=== PATIENT | male | born 1955 | race Caucasian/White ===

== ENCOUNTER 2019-11-17 17:58 | Emergency (ER) | payer OTHER, SELFPAY ==
--- NOTE | ~2019-11-17 | XR_ITS ---
EXAMINATION: XR abdomen/kub 1V EXAM DATE: 11/17/2019 19:52 INDICATION: Right mid ureteral stone. Right renal mass. TECHNIQUE: Frontal projection(s) of the abdomen for interpretation. There is no prior study for [place]. FINDINGS: Can't identify the 3-4 mm right mid ureteral stone, may project over the upper sacral yancy in. Can't identify the punctate bilateral nephrolithiasis. There is mild to moderate thoracolumbar sc oliosis. Moderate amount of colonic stool and gas. No obstruction. IMPRESSION: 1. Cannot identify right mid ureteral stone. Reviewed, dictated and finalized at location A.
--- NOTE | ~2019-11-17 | XR_ITS ---
EXAMINATION: XR chest 2V EXAM DATE: 11/17/2019 19:52 INDICATION: Renal mass, history of hypertension. TECHNIQUE: Frontal and lateral projections of the chest obtained and reviewed. There is no prior sherrie dy for comparison. FINDINGS: There is mild to moderate upper thoracic levoscoliosis, mid thoracic dextroscoliosis, lumb ar levoscoliosis. There is a 6 mm density projecting over the right midlung zone, possible intraparen chymal nodule. Please note that couple of smaller nodules were identified on the abdomen and pelvis C T obtained earlier same date. No confluent consolidation, pneumothorax or pleural effusion suspected. Cardiomediastinal silhouette is normal. IMPRESSION: Right midlung zone 6 mm indeterminate nodular density. Could be granuloma but consider fo llow-up nonemergent chest CT to exclude pulmonary metastatic disease. Reviewed, dictated and finalized at location A. IMPRESSION: Right midlung zone 6 mm indeterminate nodular density. Could be gra nuloma but consider follow-up nonemergent chest CT to exclude pulmonary metasta tic disease.
--- NOTE | ~2019-11-17 | CT_ITS ---
EXAMINATION: CT abdomen pelvis wo con EXAM DATE: 11/17/2019 18:51 INDICATION: Right flank pain. History of kidney stones. TECHNIQUE: Spiral CT of the abdomen and pelvis was performed without contrast. Axial, coronal and sag ittal images were reviewed. The dose-length product (DLP) for this examination was 763.31 mGy-cm. T he exposure was tailored according to patient size (auto mA exposure control), and iterative reconstr uction (ASIR) was used as additional dose reduction technique. There is no prior study for compariso n. FINDINGS: There is lobular heterogeneous mass at the superior pole of the right kidney measuring 7.6 x 5.8 cm, most likely renal cell cancer. There is a 3-4 mm stone in the mid aspect of the right urete r, at the L5-S1 disc space level, with mild right-sided hydronephrosis, mild to moderate perinephric and periureteral fat stranding. Additional punctate bilateral calyceal stones. The prostate is unre markable. Small right inguinal fat-containing hernia. The bladder is unremarkable. The liver, spleen, adrenal glands and pancreas are unremarkable. Gallbladder is unremarkable. No bi liary obstruction. There is no retroperitoneal or pelvic lymphadenopathy. There is mild scattered arteriosclerotic disease. The appendix is normal. The stomach and small bowel are unremarkable. There is expected amount of c olonic stool. No free intraperitoneal gas. The heart is normal in size. There are no pericardial or pleural effusions. There is mild emphysema. There is a 3 mm pleural-based left lower lobe nodule on image 11, punctate 2 mm right lower lobe nodule on image 9. Most likely granulomas. 1 year follow-up low-dose chest CT ca n be considered. Mild to moderate thoracolumbar scoliosis. IMPRESSION: 1. Large right renal mass most likely RCC. 2. Right mid ureteral 3-4 mm stone, mild hydronephrosis and mild to moderate perinephric fat strandi ng. 3. Two tiny basilar nodules; consider one-year follow-up low-dose chest CT. 4. Small right inguinal fat-containing hernia. 5. Punctate bilateral nephrolithiasis. Reviewed, dictated and finalized at location A. IMPRESSION: 1. Large right renal mass most likely RCC. 2. Right mid ureteral 3-4 mm stone, mild hydronephrosis and mild to moderate p erinephric fat stranding. 3. Two tiny basilar nodules; consider one-year follow-up low-dose chest CT. 4. Small right inguinal fat-containing hernia. 5. Punctate bilateral nephrolithiasis.
[2019-11-17 18:01] VITALS: BP 157/78; PULSE 93; RESP 16; TEMP 36.4; O2SAT 99
--- NOTE | 2019-11-17 18:19 | ED.BACK ---
HPI - Back Pain/Injury General Chief Complaint: Back Pain/Injury Stated Complaint: R flank pain Time Seen by Provider: 11/17/19 18:07 Source: patient Mode of arrival: ambulatory Limitations: no limitations History of Present Illness HPI Narrative: This is a 64 year old male that presents to the ER for right sided flank pain since this afternoon. Reports the pain has been constant. Associated with an episode of nausea and vomiting. Reports history of kidney stones and pain feels similar to that. Denies fever, dysuria, or hematuria. Related Data Home Medications Medication Instructions Recorded Confirmed glimepiride 1 mg tablet 1 mg PO QAM 04/17/19 lisinopril 10 mg tablet 10 mg PO DAILY 04/17/19 metformin 500 mg tablet 500 mg PO DAILY 04/17/19 Allergies Allergy/AdvReac Type Severity Reaction Status Date / Time No Known Allergies Allergy Unknown Verified 02/14/17 08:53 Review of Systems Review of Systems: Narrative: CONSTITUTIONAL: Denies fever GASTROINTESTINAL: Reports nausea and vomiting. Denies abdominal pain, or diarrhea. GENITOURINARY: Denies dysuria or hematuria. MUSCULOSKELETAL: Reports back pain All systems reviewed & are unremarkable except as noted in HPI and below FOR[facility]LY [facility] Past Medical History Medical History (Updated 11/17/19 @ 19:53 by Anna Reardon PA-C) Essential hypertension History of diabetes mellitus JEANNIE (obstructive sleep apnea) Social History Social History Smoking status: Current every day smoker Exam Narrative: Exam Narrative: GENERAL: Well-appearing, obese, and in no acute distress. HEAD: Normocephalic, atraumatic. EYES: EOMI. CHEST: Clear to auscultation. No respiratory distress. No wheezes rales or rhonchi HEART: Regular rate and rhythm. No murmur heard. Normal peripheral pulses. ABDOMEN: Soft, nontender, nondistended, normal active bowel sounds. Right sided CVA tenderness EXTREMITIES: Normal range of motion. No edema. SKIN: Warm, dry, no rash. NEURO: No focal deficits. Alert and oriented x3. PSYCH: Normal mood and affect Course Consultations Consultation #1: Spoke with Dr. Jacobs about patient and workup who would like KUB and chest x-ray added on. Will get message to Dr. Hampton who patient has seen in the past. Patient will be started on Flomax and given pain medication as needed. He is to follow-up in clinic Date: 11/17/19 Time: 19:50 Consultation #2: spoke with patient's primary appraiser irrigation tax, Dr. Thompson about work-up. Date: 11/17/19 Time: 19:53 Vital Signs Vital signs: Vital Signs Temperature 97.5 F L 11/17/19 18:01 Pulse Rate 93 11/17/19 18:01 Respiratory Rate 16 11/17/19 18:01 Blood Pressure 157/78 H 11/17/19 18:01 Pulse Oximetry 99 11/17/19 18:01 Temperature 97.5 F L 11/17/19 18:01 Pulse Rate 93 11/17/19 18:01 Respiratory Rate 16 11/17/19 18:01 Blood Pressure 157/78 H 11/17/19 18:01 Pulse Oximetry 99 11/17/19 18:01 MDM - Back Pain/Injury MDM Narrative Medical decision making narrative: Patient presents the emergency department for right-sided flank pain since this afternoon. He is afebrile and nontoxic-appearing. CBC with mild leukocytosis to 11.5. Metabolic panel is without acute changes. UA with red blood cells, no evidence of infection. CT scan of the abdomen and pelvis shows a right 3 to 4 mm mid ureteral stone with mild right hydronephrosis. Also shows a large right renal mass suspicious for RCC. Also shows small lung nodules which will need follow-up in [address] scan. Spoke with Dr. Jacobs about patient and workup who would like KUB and chest x-ray added on. Will get message to Dr. Hampton who patient has seen in the past. Patient will be started on Flomax and given pain medication as needed. He is to follow-up in clinic. Also spoke with patient's primary appraiser irrigation tax, Dr. Thompson about work-up. Patient is stable and felt appropriate for further outpatient ev
[2019-11-17 18:23] LABS: Basophils Absolute Auto 0.1 K/mm3 (0.0-0.1); Basophils Percent Auto 0.4 % (0.2-1.2); Eosinophils Percent Auto 0.1 % (0-4.4); Hematocrit 47.6 % (42.0-52.0); Hemoglobin 15.2 g/dL (14.0-18.0); Immature Granulocyte Absolute 0.03 K/mm3 (0.00-0.031); Immature Granulocyte Percent A 0.3 % (0-0.5); Lymphocytes Absolute Auto 0.71 K/mm3 (0.9-3.2); Lymphocytes Percent Auto 6.2 % (18.3-44.2); Mean Corpuscular HGB Conc 31.9 g/dl (32-36); Mean Corpuscular Hemoglobin 28.8 pg (26-34); Mean Corpuscular Volume 90.3 fl (80-100); Mean Platelet Volume 11.4 fl (7.4-10.4); Monocytes Absolute Auto 0.4 K/mm3 (0.1-0.6); Monocytes Percent Auto 3.8 % (2.6-8.5); Neutrophils Absolute Auto 10.3 K/mm3 (1.3-6.7); Neutrophils Percent Auto 89.2 % (45.5-73.1); Platelet Count Result 188 k/mm3 (150-375); Red Blood Count 5.27 M/mm3 (4.6-6.20); Red Cell Distribution Width 13.3 % (11.5-14.5); White Blood Count 11.5 K/mm3 (4.5-10.0)
[2019-11-17 18:26] LABS: Add Urine Microscopic? YES; Appearance Urine Clear (Clear); Bilirubin Urine Negative (Negative); Blood Urine 1+ (Negative); Color Urine Yellow (Yellow); Glucose Urine UA Negative (Negative); Ketones Urine Negative (Negative); Leukocyte Esterase Ur Negative LEU/UL (Negative); Mucus Urine Rare /lpf; Nitrate Urine Negative (Negative); Protein Urine Negative (Negative); Specific Grav Ur 1.019 (1.001-1.035); Squamous Epithelial Cell Urine Rare /hpf (Few); Urobilinogen Urine Negative mg/dL (<2.0); WBC Urine 0-3 /hpf
[2019-11-17 18:35] LABS: Alanine Aminotransferase 40 U/L (4-50); Albumin Level 4.6 g/dL (3.5-5.1); Alkaline Phosphatase 87 U/L (38-126); Aspartate Amino Transferase 27 U/L (17-59); Bilirubin,Total 0.3 mg/dL (0.2-1.3); Blood Urea Nitrogen 21 mg/dL (9-20); Calcium 9.2 mg/dL (8.4-10.2); Carbon Dioxide 24 mmol/L (22-30); Chloride 103 mmol/L (98-107); Estimated CRCL calculation 70 ml/min; Estimated Glomerular Filt Rate > 60; Glucose 165 mg/dL (75-110); Potassium 4.5 mmol/L (3.4-5.0); Sodium 138 mmol/L (137-145)
[2019-11-17] MEDS: MORPHINE SULFATE 4 MG/ML INJ IV PUSH (19:06)
[2019-11-17] MEDS: ONDANSETRON INJ 4 MG/2 ML VIAL (19:07)
[2019-11-17] MEDS: KETOROLAC 30 MG/ML VIAL (*BKC) IV PUSH (20:09)
== END 2019-11-17 20:24 | disposition home or self-care (01) ==
PROVIDERS: Physician Assistant; Emergency Provider Emergency Medicine; PCP Family Medicine
DX: N13.2 Hydronephrosis with renal and ureteral calculous obstruction (principal); N28.89 Other specified disorders of kidney and ureter; R91.8 Other nonspecific abnormal finding of lung field; I10 Essential (primary) hypertension; E11.9 Type 2 diabetes mellitus without complications; G47.33 Obstructive sleep apnea (adult) (pediatric); F17.200 Nicotine dependence, unspecified, uncomplicated; K40.90 Unilateral inguinal hernia, without obstruction or gangrene, not specified as recurrent; Z79.84 Long term (current) use of oral hypoglycemic drugs
CPT/HCPCS: 36415; 71046; 74018; 74176; 80053; 81001; 85025; 96365; 96375; 99284; J0131; J1885; J2270; J2405

== ENCOUNTER 2019-11-28 09:40 | Outpatient (CLI) | payer OTHER, SELFPAY ==
--- NOTE | ~2019-11-28 | CT_ITS ---
EXAMINATION: CT chest w con DATE: 11/28/2019 10:32 INDICATION: Right kidney mass TECHNIQUE: Transaxial computed tomographic images of the chest were obtained after the administration of 100 cc of Omnipaque 350 intravenous contrast. The dose-length product (DLP) was 468.60 mGy-cm. It erative reconstruction was used. COMPARISON: 11/28/2019, 11/17/2019 FINDINGS: There is a 5 mm pleural-based nodule of the left lower lobe on image 74. Mild dependent ate lectasis is noted. There is no pleural effusion or pneumothorax. No pathologically enlarged thoracic lymph nodes are identified. Right subpectoral lymph nodes are upper limits of normal in short axis di ameter. The heart size is normal. There is mild thoracic spondylosis. There is a 7.6 cm heterogeneous ly enhancing exophytic mass of the right kidney upper pole, consistent with renal cell carcinoma. IMPRESSION: 1. 5 mm pleural-based nodule of the left lower lobe. 2. Right kidney mass, consistent with renal cell carcinoma. Reviewed, dictated and finalized at location A.
--- NOTE | ~2019-11-28 | CT_ITS ---
EXAMINATION: CT abdomen pelvis wo/w con DATE: 11/28/2019 10:32 INDICATION: Right kidney mass TECHNIQUE: Computed tomography (CT) of the abdomen was performed without intravenous contrast. CT of the abdomen and pelvis was then performed with a total of 130 mL Omnipaque 350 intravenous contrast u sing a double-bolus technique for simultaneous opacification of the renal parenchyma and renal collec ting system. The dose-length product (DLP) was 864.84 mGy-cm. Automated exposure control and iterativ e reconstruction technique were employed. COMPARISON: 11/17/2019 FINDINGS: The lung bases are clear. The heart size is normal. Punctate calcifications in an otherwise normal spleen likely represent healed granulomatous disease. The liver, pancreas, gallbladder, and a drenal glands are normal. There is a 7.8 x 5.6 cm heterogeneously enhancing exophytic mass of the rig ht kidney upper pole. The right renal vein appears normal. There is mild lumbar spondylosis. Multip le bilateral simple cysts are present in the kidneys. There is also punctate bilateral nonobstructing nephrolithiasis. There is no hydronephrosis or hydroureter. The previously described right mid urete ral stone is no longer identified. No pathologically enlarged abdominal or pelvic lymph nodes are jo ann ntified. There is no free intraperitoneal gas or evidence of bowel obstruction. There is a fat-contai ady right inguinal hernia. The appendix is normal. IMPRESSION: 1. Exophytic right kidney mass consistent with renal cell carcinoma. Reviewed, dictated and finalized at location A.
== END 2019-11-28 09:41 | disposition home or self-care (01) ==
PROVIDERS: PCP Family Medicine; Visit Provider Urology
DX: N28.89 Other specified disorders of kidney and ureter (principal); R91.8 Other nonspecific abnormal finding of lung field
CPT/HCPCS: 71260; 74178; Q9967

== ENCOUNTER 2019-12-03 10:02 | Outpatient (CLI) | payer OTHER, SELFPAY ==
--- NOTE | 2019-12-03 10:55 | ECG_ITS ---
Measurements Intervals [place] Rate: 79 P: 18 AK: 165 QRS: -20 QRSD: 90 T: -2 QT: 361 QTc: 414 Interpretive Statements SINUS RHYTHM DELAYED PRECORDIAL R/S TRANSITION BORDERLINE T WAVE ABNORMALITY- INFERIOR LEADS BASELINE ARTIFACT- I, II, AVR BORDERLINE ECG Electronically Signed On 12-03-2019 13:18:44 CDT by Kuldeep Thompson D.O.
[2019-12-03 11:38] LABS: INR 0.9; Partial Thromboplastin Time 25.6 SECONDS (22.3-36.8); Prothrombin Time 12.3 Seconds (11.1-14.7)
== END 2019-12-03 10:03 | disposition home or self-care (01) ==
LOC: ANHSURGERY 10:06
PROVIDERS: PCP Family Medicine; Visit Provider Urology
DX: Z01.818 Encounter for other preprocedural examination (principal); N28.89 Other specified disorders of kidney and ureter; Z86.39 Personal history of other endocrine, nutritional and metabolic disease
CPT/HCPCS: 36415; 85610; 85730; 86850; 86900; 86901; 87086; 93005

== ENCOUNTER 2019-12-09 00:18 | Outpatient (CLI) | payer OTHER, SELFPAY ==
[2019-12-09 18:54] LABS: SARS-CoV-2 RNA PCR Negative
== END 2019-12-09 00:19 | disposition home or self-care (01) ==
LOC: ANHCOVIDDT 00:19
PROVIDERS: PCP Family Medicine; Visit Provider Urology
DX: Z01.818 Encounter for other preprocedural examination (principal); Z11.59 Encounter for screening for other viral diseases
CPT/HCPCS: 87635; C9803; U0003

== ENCOUNTER 2019-12-11 12:23 | Inpatient (IN) | payer OTHER, SELFPAY ==
[2019-12-03 10:24] VITALS: BP 142/78; PULSE 90; RESP 22; TEMP 36.9; O2SAT 98; BMI 35.0
[2019-12-11] VITALS (17 sets, daily range): BP systolic 146–172; BP diastolic 76–97; PULSE 16–88; RESP 16–22; TEMP 36.1–37; O2SAT 93–100; BMI 36.9
[2019-12-11] MEDS: LACTATED RINGERS 1,000 ML 30 ML IV CONT ×2 (10:25→15:38)
[2019-12-11 10:28] LABS: Glucose Point of Care 135 (65-105)
--- NOTE | 2019-12-11 10:39 | WPDANESEPPF ---
Anes - Initial Pre Proc Eval Procedure: Operation Date: 12/11/19 12:00 Proposed Procedures p Hand-Assisted Laparoscopic Right Radical Nephrectomy - Waqas Buck MD Date/Time: 12/11/19 10:39 Surgeon: Waqas Buck MD Pre Op Diagnosis: right renal mass Patient Data Age: 64 Gender: M Height: 6 ft Weight: 112.6 kg Last Vital Signs Temp 36.1 C L 12/11/19 10:10 Pulse 86 12/11/19 10:10 Resp 20 12/11/19 10:10 BP 146/85 H 12/11/19 10:10 Pulse Ox 97 12/11/19 10:10 Allergies Allergy/AdvReac Type Severity Reaction Status Date / Time No Known Allergies Allergy Unknown Verified 12/11/19 10:31 Home Medications Medication Instructions Recorded Confirmed Type glimepiride 1 mg tablet 1 mg PO QAM 04/17/19 12/11/19 History lisinopril 10 mg tablet 20 mg PO DAILY 04/17/19 12/11/19 History metformin 500 mg tablet 850 mg PO BID 04/17/19 12/11/19 History L. gasseri-B. bifidum-B longum 1 cap PO DAILY 12/03/19 12/11/19 History [[facility]] diphenhydramine-acetaminophen 2 tablet PO HS 12/03/19 12/11/19 History [Tylenol PM Extra Strength] zolpidem 10 mg PO HS 12/03/19 12/11/19 History Laboratory Tests 12/11/19 10:24 POC Capillary Glucose 135 mg/dl H mg/dl (65-105) Patient hx anesthesia problems: none Family hx anesthesia problems: none PMFSH Past Medical History Medical History Essential hypertension History of diabetes mellitus JEANNIE (obstructive sleep apnea) Renal cell cancer Family History Family History Father Diabetes mellitus Cerebrovascular accident Mother Acute myocardial infarction Family history of congestive heart failure Social History Social History Smoking status: Current every day smoker Anes - Eval Final PreProcedure Day of Procedure 12/11/19 10:39 Patient weight: obese Heart: regular rate and rhythm Lungs: decreased breath sounds Airway: Mallampati scale class II Neurological: alert and oriented Last oral intake: >/= 8 hours ASA classification: III Emergent: no Anesthetic plan: proceed Anesthesia type and monitoring: general ETT and standard monitoring Informed Consent: The patient's anesthetic plan and its attendant risks and benefits were discussed with the patient/family/POA. Questions were solicited and answers provided to the satisfaction of the patient/family/POA.
--- NOTE | 2019-12-11 11:54 | WPDHPUPDATE1 ---
History and Physical Update Update Date/Time: 12/11/19 11:54 History and Physical has been reviewed, including an updated exam of the patient. There are NO changes in the patient's condition. Risks, benefits, and alternatives have been discussed and questions answered. Patient agrees to proceed with procedure.
[2019-12-11] MEDS: ceFAZolin 2 GM/D5W 50 ML 2 GM/50 ML BAG IVPB (12:00)
--- NOTE | 2019-12-11 15:19 | P.OP_ITS ---
Procedure Note - Detailed Date of procedure: 12/11/19 Pre-op diagnosis: right renal mass Post-op diagnosis: same Procedure performed: Hand assisted laparoscopic right radical nephrectomy Description of procedure: Patient was taken to the operative suite and correctly identified. Once anesthesia was obtained he was placed in the lateral decubitus position with the right side up. All pressure points were padded. Axillary roll was placed. He was prepped and draped in the usual sterile fashion. Midline incision was made just superior and lateral to the umbilical site. This was carried down to the rectus fashion incised. GelPort arm was then placed and the peritoneal cavity was insufflated to 15 mmHg pressure. We then placed our working ports appropriate locations. We started by taking down the white line of T[place] and reflecting the colon medially. The duodenum was Kocherized. He had quite a bit of inflammatory reaction around the hilar area. We started out by the finding the ureter and raising the kidney off the psoas muscle. We traced the gonadal vein up to the inferior vena cava. We were then able to identify the renal vein and artery. Due to the amount of inflammation around the 2 we were unable to separate them and thus placed in endovascular staple across the was. The ureter was then transected after stapling with delphine. It appears if so part of the adrenal gland went under the vena cava in this we n eeded to transect part of the adrenal gland. Hemostasis was adequate at termination of procedure. To seal was placed on the renal hilar area as well as the adrenal bed. All lap count needle count sponge counts were correct. Specimen was brought out through the hand port. Midline incision was closed with 3 O chromic in the peritoneum and then double-looped PDS for the rectus sheath. Subcuticular stitches were placed on the incisions. We anesthetized with Marcaine. He tolerated procedure well was taken recovery room stable condition. Anesthesia: GETA Surgeon: Waqas Buck MD Estimated blood loss (mL): 150 Drains: No Packing: No Pathology: yes Complications: No immediate complications Condition: stable Disposition: PACU
[2019-12-11 16:05] LABS: Glucose Point of Care 225 (65-105)
[2019-12-11] MEDS: DEXTROSE 5%/LACTATED RINGERS 1,000 ML 150 ML IV CONT (19:48)
[2019-12-11] MEDS: ONDANSETRON INJ 4 MG/2 ML VIAL IV PUSH (19:53)
[2019-12-11] MEDS: DOCUSATE SODIUM 100 MG CAPSULE PO (20:39)
[2019-12-11] MEDS: ZOLPIDEM TARTRATE 5 MG TABLET 10 MG PO (20:39)
[2019-12-11 22:14] LABS: Glucose Point of Care 281 (65-105)
[2019-12-12] VITALS (7 sets, daily range): BP systolic 132–144; BP diastolic 70–83; PULSE 81–94; RESP 16–20; TEMP 36.3–37.2; O2SAT 95–98
[2019-12-12] MEDS: DEXTROSE 5%/LACTATED RINGERS 1,000 ML 150 ML IV CONT ×3 (03:18→20:41)
[2019-12-12] MEDS: ONDANSETRON INJ 4 MG/2 ML VIAL IV PUSH (03:22)
[2019-12-12 06:00] LABS: Basophils Percent Auto 0.2 % (0.2-1.2); Hematocrit 39.9 % (42.0-52.0); Hemoglobin 13.2 g/dL (14.0-18.0); Immature Granulocyte Absolute 0.01 K/mm3 (0.00-0.031); Immature Granulocyte Percent A 0.2 % (0-0.5); Lymphocytes Percent Auto 6.6 % (18.3-44.2); Mean Corpuscular HGB Conc 33.1 g/dl (32-36); Mean Corpuscular Hemoglobin 28.9 pg (26-34); Mean Corpuscular Volume 87.3 fl (80-100); Mean Platelet Volume 11.9 fl (7.4-10.4); Monocytes Absolute Auto 0.7 K/mm3 (0.1-0.6); Monocytes Percent Auto 10.9 % (2.6-8.5); Neutrophils Percent Auto 82.1 % (45.5-73.1); Platelet Count Result 143 k/mm3 (150-375); Red Blood Count 4.57 M/mm3 (4.6-6.20); Red Cell Distribution Width 13.4 % (11.5-14.5); White Blood Count 6.1 K/mm3 (4.5-10.0)
[2019-12-12 06:24] LABS: Blood Urea Nitrogen 23 mg/dL (9-20); Calcium 8.5 mg/dL (8.4-10.2); Carbon Dioxide 26 mmol/L (22-30); Chloride 98 mmol/L (98-107); Estimated CRCL calculation 56 ml/min; Estimated Glomerular Filt Rate 47; Glucose 237 mg/dL (75-110); Potassium 4.3 mmol/L (3.4-5.0); Sodium 133 mmol/L (137-145)
[2019-12-12 08:16] LABS: Glucose Point of Care 236 (65-105)
[2019-12-12] MEDS: DOCUSATE SODIUM 100 MG CAPSULE PO ×2 (08:43→18:11)
[2019-12-12] MEDS: lisinopriL 20 MG TABLET PO (08:43)
--- NOTE | 2019-12-12 12:19 | WPDUROPN2 ---
Progress Note: A&P Assessment and Plan (1) Renal cell cancer: Code(s): C64.9 - Malignant neoplasm of unspecified kidney, except renal pelvis Status: Acute Assessment and Plan: Advance diet as tolerated. Get nausea under good control. Encourage activity. Plan to go home tomorrow if nausea is better and he is tolerating food and drink. Subjective Subjective Date/Time Seen: 12/12/19 12:19 POD #1 Hand Assisted Laparoscopic Right Radical Nephrectomy Patient c/o nausea on clear liquids. Review of Systems Cardiovascular: Cardiovascular: Denies chest pain Respiratory: Respiratory: Reports no additional respiratory complaints Gastrointestinal: Gastrointestinal: Reports abdominal pain (at incision only) Genitourinary: Genitourinary: Denies hematuria Exam Resp: Effort & Inspection: normal respiratory effort Cardio: Rate: regular rate GI: Inspection: incision (well approximated, all incsions are pink, no edema or drainage present) GI Palp: Yes Soft to palpation and Yes Tenderness to palpation present (GI) (at incisions) Urinary Catheter: Urinary Catheter: patent and draining and urine clear Extrem: General: no edema Objective Data Vital Signs Vital Signs: Vital Signs - 24 hr 12/11/19 15:38 12/11/19 15:50 12/11/19 16:05 Temperature 98.5 F Pulse Rate 74 78 79 Respiratory Rate 18 22 H 20 Blood Pressure 155/85 H 172/88 H 171/97 H Pulse Oximetry 96 100 99 12/11/19 16:20 12/11/19 16:35 12/11/19 16:50 Temperature 97.7 F Pulse Rate 77 72 76 Respiratory Rate 18 18 20 Blood Pressure 159/92 H 151/86 H 161/91 H Pulse Oximetry 96 97 95 12/11/19 17:00 12/11/19 17:02 12/11/19 17:17 Temperature 98.6 F 98.5 F Pulse Rate 74 77 16 L Respiratory Rate 20 16 16 Blood Pressure 152/91 H 154/95 H 159/97 H Pulse Oximetry 93 97 12/11/19 17:47 12/11/19 18:21 12/11/19 18:47 Temperature 98.3 F 98.5 F Pulse Rate 78 88 Respiratory Rate 16 18 Blood Pressure 155/93 H 149/91 H Pulse Oximetry 95 99 97 12/11/19 19:30 12/11/19 20:45 12/11/19 21:13 Temperature Pulse Rate Respiratory Rate Blood Pressure Pulse Oximetry 94 97 94 12/11/19 21:28 12/12/19 02:00 12/12/19 06:00 Temperature 98.0 F 98.4 F 98.1 F Pulse Rate 79 94 90 Respiratory Rate 18 18 20 Blood Pressure 155/76 H 134/79 144/75 H Pulse Oximetry 97 95 97 12/12/19 08:40 Temperature 98.4 F Pulse Rate 87 Respiratory Rate 18 Blood Pressure 140/83 Pulse Oximetry 96 Intake/Output Intake/Output: Intake & Output 12/09/19 12/10/19 12/11/19 12/12/19 23:59 23:59 23:59 23:59 Intake Total 300 1610 Output Total 65 1050 Balance 235 560 Meds/Results Medications: Active Medications Generic Name Dose Route Start Last Admin Trade Name Freq PRN Reason Stop Dose Admin Hydrocodone Bitart/Acetaminophen 1 tab 12/12/19 05:00 [place] 5-325 Mg PO Q4H PRN Pain Rated 1-3 Hydrocodone Bitart/Acetaminophen 2 tab 12/12/19 05:00 12/12/19 08:02 [place] 5-325 Mg PO 2 tab Q4H PRN Administration Pain Rated 4-6 Docusate Sodium 100 mg 12/11/19 17:02 12/12/19 08:43 Colace Capsule PO 100 mg BID BRANDIE Administration Hydromorphone HCl 0.5 mg 12/11/19 17:02 12/12/19 01:00 Dilaudid Inj IV PUSH 0.5 mg Q4H PRN Administration Pain Rated 7-10 Dextrose/Lactated Ringer's 1,000 mls @ 150 mls/hr 12/11/19 17:02 12/12/19 03:18 Dextrose 5%/Lactated Ringers IV CONT 150 mls/hr .Q6H40M BRANDIE Administration Cefazolin Sodium 1 gm in 50 mls @ 100 mls/hr 12/11/19 20:00 12/12/19 04:17 Ancef 1 Gm/D5w 50 Ml Pm IVPB 12/12/19 12:29 Infused Q8H BRANDIE Infusion Lisinopril 20 mg 12/12/19 09:00 12/12/19 08:43 Prinivil PO 20 mg QAM BRANDIE Administration Metformin HCl 850 mg 12/12/19 08:00 12/12/19 08:43 Glucophage PO 850 mg BIDWM BRANDIE Administration Naloxone HCl 0.1 mg 12/11/19 17:02 Narcan IV PUSH Q2M PRN Opiate Reversal Non-Formulary
--- NOTE | 2019-12-12 14:31 | P.PNAN_ITS ---
Anes - Prog Note Post-Op Date/Time: 12/12/19 14:31 Cardiovascular status: normal Respiratory status: normal Airway patency: baseline Mental status: baseline Post-Op hydration status: normal Vital Signs: Last Vital Signs Temp 36.9 C 12/12/19 08:40 Pulse 87 12/12/19 08:40 Resp 18 12/12/19 08:40 BP 140/83 12/12/19 08:40 Pulse Ox 96 12/12/19 08:40 I/O: Intake & Output 12/11/19 12/12/19 12/12/19 23:59 07:59 15:59 Intake Total 250 1610 1120 Output Total 65 1050 Balance 538 [id number] Laboratory Tests 12/12/19 05:05 12/12/19 05:06 12/11/19 12/11/19 12/12/19 16:02 20:46 05:05 WBC 6.1 RBC 4.57 L Hgb 13.2 L Hct 39.9 L MCV 87.3 MCH 28.9 MCHC 33.1 RDW 13.4 Plt Count 143 L MPV 11.9 H Immature Gran % (Auto) 0.2 Neut % (Auto) 82.1 H Lymph % (Auto) 6.6 L [place] % (Auto) 10.9 H Eos % (Auto) 0.0 Baso % (Auto) 0.2 Lymph # (Auto) 0.40 L [place] # (Auto) 0.7 H Eos # (Auto) 0.0 Baso # (Auto) 0.0 Abs Immat Gran (auto) 0.01 Absolute Neuts (auto) 5.0 Absolute Nucleated RBC 0.0 Nucleated RBC % 0.0 Sodium Potassium Chloride Carbon Dioxide BUN Creatinine Estim Creat Clear Calc Estimated GFR Glucose POC Capillary Glucose 225 H 281 H Calcium 12/12/19 12/12/19 05:06 08:06 WBC RBC Hgb Hct MCV MCH MCHC RDW Plt Count MPV Immature Gran % (Auto) Neut % (Auto) Lymph % (Auto) [place] % (Auto) Eos % (Auto) Baso % (Auto) Lymph # (Auto) [place] # (Auto) Eos # (Auto) Baso # (Auto) Abs Immat Gran (auto) Absolute Neuts (auto) Absolute Nucleated RBC Nucleated RBC % Sodium 133 L Potassium 4.3 Chloride 98 Carbon Dioxide 26 BUN 23 H Creatinine 1.50 H Estim Creat Clear Calc 56 Estimated GFR 47 L Glucose 237 H POC Capillary Glucose 236 H Calcium 8.5 Post-procedural complaints: none Patient Feedback: Patient satisfied with anesthetic care.
[2019-12-12] MEDS: ZOLPIDEM TARTRATE 5 MG TABLET 10 MG PO (22:35)
[2019-12-13] MEDS: DEXTROSE 5%/LACTATED RINGERS 1,000 ML 150 ML IV CONT (05:35)
[2019-12-13 06:00] VITALS: BP 138/62; PULSE 88; RESP 20; TEMP 36.6; O2SAT 94
[2019-12-13 07:32] VITALS: O2SAT 92
[2019-12-13] MEDS: lisinopriL 20 MG TABLET PO (09:03)
[2019-12-13] MEDS: DOCUSATE SODIUM 100 MG CAPSULE PO (09:03)
--- NOTE | 2019-12-13 11:41 | WPDUROPN2 ---
Progress Note: A&P Additional Plan POD #2 s/p lap nephrectomy. Feels well. Tolerating diet. We discussed the need for follow up with Dr. Del Anegl to review the final pathology. OK for discharge to home today. Subjective Subjective Date/Time Seen: 12/13/19 11:41 Interval history: He feels well today. He has voided since the catheter was removed. His pain has been controlled with oral medications. His was able to get the pain medication filled for at home. He has been tolerating regular diet without nausea or emesis. Exam Const: General: no acute distress Resp: Effort & Inspection: normal respiratory effort GI: Inspection: distended Other: patient states tis is his normal abdominal appearance Skin: General skin exam: normal color Other: incsions appear normal Extrem: General: normal to inspection Psych: Mental Status: mental status grossly normal Objective Data Vital Signs Vital Signs: Vital Signs - 24 hr 12/12/19 14:00 12/12/19 18:00 12/12/19 20:20 Temperature 37.1 C 37.2 C Pulse Rate 81 90 86 Respiratory Rate 16 16 18 Blood Pressure 132/70 143/71 H Pulse Oximetry 97 98 95 12/12/19 21:37 12/13/19 06:00 12/13/19 07:32 Temperature 36.3 C L 36.6 C Pulse Rate 87 88 Respiratory Rate 20 20 Blood Pressure 142/71 H 138/62 Pulse Oximetry 95 94 92 Intake/Output Intake/Output: Intake & Output 12/10/19 12/11/19 12/12/19 12/13/19 23:59 23:59 23:59 23:59 Intake Total 300 4700 1850 Output Total 65 2200 2400 Balance 235 2500 -550 Meds/Results Medications: Active Medications Generic Name Dose Route Start Last Admin Trade Name Freq PRN Reason Stop Dose Admin Hydrocodone Bitart/Acetaminophen 1 tab 12/12/19 05:00 [place] 5-325 Mg PO Q4H PRN Pain Rated 1-3 Hydrocodone Bitart/Acetaminophen 2 tab 12/12/19 05:00 12/12/19 22:35 [place] 5-325 Mg PO 2 tab Q4H PRN Administration Pain Rated 4-6 Docusate Sodium 100 mg 12/11/19 17:02 12/13/19 09:03 Colace Capsule PO 100 mg BID BRANDIE Administration Hydromorphone HCl 0.5 mg 12/11/19 17:02 12/12/19 01:00 Dilaudid Inj IV PUSH 0.5 mg Q4H PRN Administration Pain Rated 7-10 Dextrose/Lactated Ringer's 1,000 mls @ 150 mls/hr 12/11/19 17:02 12/13/19 05:35 Dextrose 5%/Lactated Ringers IV CONT 150 mls/hr .Q6H40M BRANDIE Administration Lisinopril 20 mg 12/12/19 09:00 12/13/19 09:03 Prinivil PO 20 mg QAM BRANDIE Administration Metformin HCl 850 mg 12/12/19 08:00 12/13/19 09:03 Glucophage PO 850 mg BIDWM BRANDIE Administration Naloxone HCl 0.1 mg 12/11/19 17:02 Narcan IV PUSH Q2M PRN Opiate Reversal Non-Formulary Medication 2 tablet 12/11/19 21:00 Diphenhydramine-Acetaminophen [Tylenol Pm Extra Strength] PO 01/10/20 21:01 HS BRANDIE Ondansetron HCl 4 mg 12/11/19 17:02 12/12/19 03:22 Zofran Inj IV PUSH 4 mg Q6H PRN Administration Nausea And Vomiting Zolpidem Tartrate 10 mg 12/11/19 21:00 12/12/19 22:35 Ambien PO 10 mg HS BRANDIE Administration
--- NOTE | 2020-01-30 12:42 | P.DS_ITS ---
DS: Admitting Diagnosis Admitting Diagnosis Admitting Diagnosis: right renal mass DS: Discharge Diagnosis Discharge Diagnosis (1) Renal cell cancer: Code(s): C64.9 - Malignant neoplasm of unspecified kidney, except renal pelvis Status: Acute DS: Summary Time Spent with Patient Time attestation: Total time spent providing and/or coordinating discharge services: Please review patients chart for details of hospital course. Uneventful post op hospital course after nephrectomy DS: Data Data Completed and Pending Completed studies during hospitalization: Pending at discharge 12/11/19 15:03 Surgical [PTH] Routine Discharge Plan Discharge Attending physician on discharge: Waqas Buck Consulting providers: Denisa Acuna Discharging Clinician: Denisa Acuna Anticipated Discharge Date/Time: 12/13/19 12:23 Patient Disposition: Home, Self-Care Activity: no straining Diet: as tolerated Wound Care Instructions: incision open to air Discharge Instructions: Dr. Buck to call patient with follow up instructions and pathology results. . Patient Instructions: Nephrectomy (DC) Stand Alone Forms: Work/School Release IP Follow-up/Referrals: Waqas Buck MD [Physician] - (The office will call you to set up a follow up appointment. Please call [phone] to arrange appointment if you have not heard anything by Monday. ) Discharge Medications: New hydrocodone-acetaminophen 5-325 mg Tablet 1 tab PO Q4H PRN (Reason: Pain Rated 1-3) 5 Days Qty: 20 RF: 0 docusate sodium 100 mg Capsule 100 mg PO BID 5 Days Qty: 10 RF: 0 cephalexin [Keflex] 500 mg capsule 500 mg PO Q12H Qty: 10 RF: 0 Continued diphenhydramine-acetaminophen [Tylenol PM Extra Strength] 25-500 mg Tablet 2 tablet PO HS RF: 0 [facility] [employer] 1.5 billion cell Capsule 1 cap PO DAILY RF: 0 glimepiride 1 mg tablet 1 mg PO QAM RF: 0 lisinopril 10 mg tablet 20 mg PO DAILY RF: 0 metformin 500 mg tablet 850 mg PO BID RF: 0 No Action zolpidem 10 mg tablet 10 mg PO HS 30 Days Qty: 30 RF: 0 Date of admission: 12/11/19 12:23 Primary Care Provider: Marlon Davis Admitting Provider: Waqas Buck Discharge Date/Time: 12/13/19 12:01 Attending physician on admission: Franki Tapia
== END 2019-12-13 12:01 | disposition home or self-care (01) | DRG 658 ==
LOC: ANH3MEDSUR 12-12 12:27
PROVIDERS: Admitting Provider Urology; PCP Family Medicine; Visit Provider Urology
PROC: 0TT00ZZ Resection of Right Kidney, Open Approach (ICD-10-PCS; principal; 2019-12-11 12:00)
DX: C64.9 Malignant neoplasm of unspecified kidney, except renal pelvis; E11.9 Type 2 diabetes mellitus without complications; G47.33 Obstructive sleep apnea (adult) (pediatric); I10 Essential (primary) hypertension; Z79.84 Long term (current) use of oral hypoglycemic drugs; Z79.899 Other long term (current) drug therapy
CPT/HCPCS: 36415; 80048; 85025; 88307; A9270; J0690; J1100; J1170; J2250; J2270; J2405; J2704; J2710; J3010; J7120; J7121

== ENCOUNTER 2020-03-06 00:18 | Outpatient (CLI) | payer OTHER, SELFPAY ==
[2020-03-06 18:02] LABS: SARS-CoV-2 RNA PCR Negative
== END 2020-03-06 00:19 | disposition home or self-care (01) ==
LOC: ANHCOVIDDT 00:18
PROVIDERS: PCP Family Medicine; Visit Provider Internal Medicine Gastroenterology
DX: Z01.812 Encounter for preprocedural laboratory examination (principal); Z20.828 Contact with and (suspected) exposure to other viral communicable diseases
CPT/HCPCS: 87635; C9803; U0003

== ENCOUNTER 2020-03-09 01:24 | Day surgery (SDC) | payer OTHER, SELFPAY ==
[2020-03-03 13:51] VITALS: BMI 37.3
[2020-03-09 06:31] VITALS: BP 129/81; PULSE 83; RESP 18; TEMP 36.9; O2SAT 98
[2020-03-09] MEDS: LACTATED RINGERS 1,000 ML 150 ML IV CONT (06:42)
[2020-03-09 06:46] LABS: Glucose Point of Care 93 (65-105)
--- NOTE | 2020-03-09 07:06 | WPDANESEPPF ---
Anes - Initial Pre Proc Eval Procedure: Operation Date: 03/09/20 07:30 Proposed Procedures p Screening Colonoscopy - Erwin Esparza MD Date/Time: 03/09/20 07:06 Surgeon: Erwin Esparza MD Pre Op Diagnosis: neoplasm screening, hx colon polyps Patient Data Age: 64 Gender: M Height: 5 ft 10 in Weight: 116 kg Last Vital Signs Temp 36.9 C 03/09/20 06:31 Pulse 83 03/09/20 06:31 Resp 18 03/09/20 06:31 BP 129/81 03/09/20 06:31 Pulse Ox 98 03/09/20 06:31 Allergies Allergy/AdvReac Type Severity Reaction Status Date / Time No Known Allergies Allergy Unknown Verified 03/09/20 06:27 Home Medications Medication Instructions Recorded Confirmed Type glimepiride 1 mg tablet 1 mg PO QAM 04/17/19 03/03/20 History lisinopril 10 mg tablet 20 mg PO DAILY 04/17/19 03/09/20 History metformin 500 mg tablet 850 mg PO DAILY 04/17/19 03/09/20 History [facility] 1 cap PO DAILY 12/03/19 03/03/20 History diphenhydramine-acetaminophen 2 tablet PO HS 12/03/19 03/03/20 History [Tylenol PM Extra Strength] hydrocodone-acetaminophen 1 tab PO Q4H PRN 5 Days #20 tablet 12/12/19 03/03/20 Rx Laboratory Tests 03/09/20 06:41 POC Capillary Glucose 93 mg/dl mg/dl (65-105) Patient hx anesthesia problems: none Family hx anesthesia problems: none PMFSH Family History Family History Father Diabetes mellitus Cerebrovascular accident Mother Acute myocardial infarction Family history of congestive heart failure Social History Social History Smoking status: Never smoker Second hand tobacco smoke exposure: No Alcohol intake: former Drinks per week: 1 Alcohol use details: MAY HAVE 1 OR 2 DRINKS PER WEEK Substance use: never Substance use type: does not use Living arrangements: with family Gender identity (if verbalized by the patient): Male Spiritual care concerns: No Anes - Eval Final PreProcedure Day of Procedure 03/09/20 07:06 Patient weight: obese Heart: regular rate and rhythm Lungs: clear to auscultation Airway: Mallampati scale class II Neurological: alert and oriented Last oral intake: >/= 8 hours ASA classification: III Emergent: no Anesthetic plan: proceed Anesthesia type and monitoring: general GIVS and standard monitoring Informed Consent: The patient's anesthetic plan and its attendant risks and benefits were discussed with the patient/family/POA. Questions were solicited and answers provided to the satisfaction of the patient/family/POA.
--- NOTE | 2020-03-09 07:53 | WPDGICN ---
Assessment and Plan Assessment and plan (1) History of colon polyps: Code(s): Z86.010 - Personal history of colonic polyps Status: Acute Assessment and Plan: Multiple adenomatous colon polyps removed in 2017. Plan is for surveillance colonoscopy now period ended intervals in the future. (2) Renal cell cancer: Code(s): C64.9 - Malignant neoplasm of unspecified kidney, except renal pelvis Status: Acute Assessment and Plan: Patient has a history of renal cell carcinoma now status post nephrectomy hopefully cured. GI Consult Note Consult date/time: 03/09/20 07:53 HPI: Mitch Tavarez is a 64 year old male seen in evaluation at the request of Dr Marlon Davis.Patient presents for follow-up colonoscopy. Patient has a history of a colonoscopy in 2017. Patient was found to have multiple adenomatous colon polyps. Patient states his current weight appetite bowel movements are normal. He denies abdominal pain. Has had no bleeding. His family history is noncontributory. His weight has remained stable. Past medical history is significant Melani he had an nephrectomy for a carcinoma of the kidney. Review of Systems Review of Systems: All systems reviewed & are unremarkable except as noted in HPI and below PMFSH Past Medical History Medical History Essential hypertension History of diabetes mellitus JEANNIE (obstructive sleep apnea) Renal cell cancer Family History Family History Father Diabetes mellitus Cerebrovascular accident Mother Acute myocardial infarction Family history of congestive heart failure Social History Social History Smoking status: Never smoker Second hand tobacco smoke exposure: No Alcohol intake: former Drinks per week: 1 Alcohol use details: MAY HAVE 1 OR 2 DRINKS PER WEEK Substance use: never Substance use type: does not use Living arrangements: with family Gender identity (if verbalized by the patient): Male Spiritual care concerns: No Meds Home Medications and Allergies Home Medications Medication Instructions Recorded Confirmed Type glimepiride 1 mg tablet 1 mg PO QAM 04/17/19 03/03/20 History lisinopril 10 mg tablet 20 mg PO DAILY 04/17/19 03/09/20 History metformin 500 mg tablet 850 mg PO DAILY 04/17/19 03/09/20 History [employer] 1 cap PO DAILY 12/03/19 03/03/20 History diphenhydramine-acetaminophen 2 tablet PO HS 12/03/19 03/03/20 History [Tylenol PM Extra Strength] hydrocodone-acetaminophen 1 tab PO Q4H PRN 5 Days #20 tablet 12/12/19 03/03/20 Rx Allergies Allergy/AdvReac Type Severity Reaction Status Date / Time No Known Allergies Allergy Unknown Verified 03/09/20 06:27 Vital Signs Vital Signs - 24 hr 03/09/20 06:31 Temperature 98.5 F Pulse Rate 83 Respiratory Rate 18 Blood Pressure 129/81 Pulse Oximetry 98 Exam Narrative: Exam Narrative: Physical exam reveals patient to be alert. Vital signs stable. HEENT exam unremarkable. Patient is anicteric. Lungs are clear to auscultation and percussion. Heart is without murmur or extra sounds. Abdominal exam bowel sounds are present soft nontender with no organomegaly. Digital external rectal exam is normal.
[2020-03-09 07:55] VITALS: BP 108/75; PULSE 78; RESP 25; O2SAT 96
[2020-03-09 08:05] VITALS: BP 110/70; PULSE 77; RESP 24; O2SAT 96
[2020-03-09 08:15] VITALS: BP 128/84; PULSE 77; RESP 25; O2SAT 96
== END 2020-03-09 08:26 | disposition home or self-care (01) ==
PROVIDERS: PCP Family Medicine; Visit Provider Internal Medicine Gastroenterology
PROC: 0DJD8ZZ Inspection of Lower Intestinal Tract, Via Natural or Artificial Opening Endoscopic (ICD-10-PCS; CPT 45378; principal; 2020-03-09 07:30)
DX: Z12.11 Encounter for screening for malignant neoplasm of colon (principal); D12.8 Benign neoplasm of rectum; K63.5 Polyp of colon; I10 Essential (primary) hypertension; E11.9 Type 2 diabetes mellitus without complications; G47.33 Obstructive sleep apnea (adult) (pediatric); Z79.84 Long term (current) use of oral hypoglycemic drugs; E66.9 Obesity, unspecified; Z68.36 Body mass index [BMI] 36.0-36.9, adult; Z85.528 Personal history of other malignant neoplasm of kidney; Z90.5 Acquired absence of kidney
CPT/HCPCS: 45385; 87635; 88305; C9803; J2704; J7120; U0003

== ENCOUNTER 2020-03-13 12:39 | Outpatient (CLI) | payer OTHER, SELFPAY ==
--- NOTE | ~2020-03-13 | XR_ITS ---
XR chest 2V DATE: 03/13/2020 13:29 INDICATION: Right renal malignant neoplasm TECHNIQUE: PA and lateral views COMPARISON: 11/17/2019 2 view chest FINDINGS: No pulmonary infiltrate or consolidation, pleural effusion or pulmonary vascular congestion or pneumothorax. Normal heart size. No hilar or mediastinal enlargement. There is scoliosis and degenerative spurring of the thoracic spine. IMPRESSION: No active cardiopulmonary disease Reviewed, dictated and finalized at location B.
--- NOTE | ~2020-03-13 | CT_ITS ---
EXAMINATION: CT abdomen pelvis wo/w con DATE: 03/13/2020 13:23 INDICATION: Malignant is a positive of right kidney; status post right nephrectomy. Restaging. TECHNIQUE: Computed tomography (CT) of the abdomen and pelvis was performed without and subsequently with 100 cc Omnipaque 350 intravenous contrast. Automated exposure control and iterative reconstructi on technique were employed. Exam dose: 2239.99 mGy-cm total exam DLP. COMPARISON: 11/28/2019 CT abdomen pelvis FINDINGS: The lung bases are clear. Normal heart size. No pericardial or pleural effusion. The liver, gallbladder, spleen, pancreas, and adrenal glands are unremarkable. Status post right nephrectomy. No recurrent mass or adenopathy is noted in the right renal bed. 4.7 cm exophytic upper pole left renal cyst. No left ureteral or renal calculus or hydroureteronephro sis. The urinary bladder is unremarkable. Moderate prostate enlargement. Normal appendix. No bowel obstruction, bowel wall thickening, pneumatosis or intraperitoneal free ai r. Normal caliber of the abdominal aorta. No intraperitoneal or retroperitoneal or pelvic mass lesion o r lymphadenopathy. Mild right fat containing right inguinal hernia. Degenerative changes of the thoracic and lumbar spine. No suspicious osteolytic or osteoblastic lesio ns are noted. IMPRESSION: Status post right nephrectomy Left renal cyst Reviewed, dictated and finalized at Location A. Reviewed, dictated and finalized at location B.
[2020-03-13 13:09] LABS: Estimated Glomerular Filt Rate 38
== END 2020-03-13 12:40 | disposition home or self-care (01) ==
LOC: ANHIMG 12:40
PROVIDERS: PCP Family Medicine; Visit Provider Urology
DX: N28.1 Cyst of kidney, acquired (principal); Z90.5 Acquired absence of kidney
CPT/HCPCS: 71046; 74178; Q9967

== ENCOUNTER → 2020-09-10 08:20 | Outpatient (CLI) | payer OTHER, SELFPAY ==
--- NOTE | ~2020-09-10 | XR_ITS ---
EXAMINATION: XR chest 2V EXAM DATE: 09/10/2020 09:06 INDICATION: Malignant neoplasm of right kidney. TECHNIQUE: Frontal and lateral projections of the chest obtained and reviewed. Comparison is made to prior examination from 03/13/2020. FINDINGS: There is mild to moderate thoracic scoliosis. The lungs are clear. There are no pleural e ffusions. The cardiomediastinal silhouette is within normal limits. There is no pneumothorax suspec sultana. There are no osteoblastic or osteolytic lesions identified. IMPRESSION: Clear lungs. Reviewed, dictated and finalized at location A. IMPRESSION: Clear lungs.
--- NOTE | ~2020-09-10 | CT_ITS ---
EXAMINATION: CT abdomen w con EXAM DATE: 09/10/2020 08:53 INDICATION: Malignant neoplasm of right kidney . TECHNIQUE: Spiral CT of the abdomen was performed following intravenous injection of 100 mL Omnipaque 350. Axial, coronal and sagittal images were reviewed. The dose-length product (DLP) for this exam ination was 696.21 mGy-cm. The exposure was tailored according to patient size (auto mA exposure con trol), and iterative reconstruction (ASIR) was used as additional dose reduction technique. Compariso n is made to prior examination from 03/13/2020. FINDINGS: There is mild julián mesentery appearance, a nonspecific finding but most commonly caused by infiltration with inflammatory cells, chronic mesenteric panniculitis. This is unchanged. The liver , spleen, adrenal glands and pancreas are unremarkable. Gallbladder is unremarkable. No biliary obs truction. Stable appearance to right nephrectomy bed, and no adjacent pathological lymph nodes. Ther e is a left renal cyst measuring 5 cm. No left hydronephrosis. There is no retroperitoneal lymphade nopathy. There is mild scattered arteriosclerotic disease. The appendix is normal. The stomach and small bowel are unremarkable. There is expected amount of c olonic stool. No free intraperitoneal gas. The heart is normal in size. There are no pericardial or pleural effusions. The lung bases are unremarkable. There is moderate lumbar levoscoliosis. IMPRESSION: 1. Stable exam. Reviewed, dictated and finalized at location A. IMPRESSION: 1. Stable exam.
[2020-09-10 08:40] LABS: Estimated Glomerular Filt Rate 40
== END ==
PROVIDERS: PCP Family Medicine; Visit Provider Urology
DX: C64.1 Malignant neoplasm of right kidney, except renal pelvis (principal); N28.1 Cyst of kidney, acquired; M41.9 Scoliosis, unspecified
CPT/HCPCS: 71046; 74160; Q9967

== ENCOUNTER 2021-08-23 07:38 | Outpatient (CLI) | payer MEDICARE, SELFPAY ==
--- NOTE | ~2021-08-23 | XR_ITS ---
XR chest 2V 08/23/2021 08:12 Indication: Malignant neoplasm of the right kidney Procedure: 2 view chest Comparison: 09/10/2020 Findings: Heart size normal. There is left upper lobe atelectasis. There is nodular density in the ri ght mid thorax which may represent a prominent nipple shadow, although parenchymal nodule is not excl uded. No focal air space disease, pulmonary edema, pleural effusion or suspected pneumothorax. Impression: 1: Left upper lobe atelectasis. 2: Nodular density right mid thorax. Follow-up chest x-ray with nipple markers recommended. Reviewed, dictated and finalized at location B. Impression: 1: Left upper lobe atelectasis. 2: Nodular density right mid thorax. Follow-up chest x-ray with nipple markers recommended.
--- NOTE | ~2021-08-23 | CT_ITS ---
EXAMINATION: CT abdomen pelvis w con DATE: 08/23/2021 08:34 INDICATION: Malignant neoplasm of right kidney, except renal pelvis. TECHNIQUE: Computed tomography (CT) of the abdomen and pelvis was performed with 100 mL Omnipaque 350 intravenous contrast. Automated exposure control and iterative reconstruction technique were employe d. The dose-length product was 1490.57 mGy-cm. COMPARISON: CT abdomen 09/10/2020 FINDINGS: The visualized portions of the lung bases demonstrate mild atelectasis. No pleural effusion . The heart size is normal. No pericardial effusion. There is diffuse hepatic steatosis. The gallblad alexx is normal. Calcifications in the spleen are consistent with old granulomatous disease. The pancre as and left adrenal gland are normal. There are changes of right nephrectomy and partial adrenalectom y. There are cysts in left kidney measuring up to 5.4 cm. The prostate is moderately enlarged. There is chronic mild fat stranding at the root of the small bowel mesentery, likely mesenteric panniculiti s. There are bilateral inguinal hernias containing fat. There are no dilated loops of bowel. There ar e changes of appendectomy. There are no pathologically enlarged lymph nodes. There is no free intrape ritoneal fluid. There is lumbar levoscoliosis and moderate spondylosis. IMPRESSION: 1. No evidence of metastatic disease. Reviewed, dictated and finalized at location A.
[2021-08-23 08:22] LABS: Estimated Glomerular Filt Rate 40
== END 2021-08-23 07:39 | disposition home or self-care (01) ==
PROVIDERS: PCP Family Medicine; Visit Provider Urology
DX: C64.1 Malignant neoplasm of right kidney, except renal pelvis (principal)
CPT/HCPCS: 71046; 74177; Q9967

== ENCOUNTER → 2021-08-27 15:09 | Outpatient (CLI) | payer MEDICARE, SELFPAY ==
--- NOTE | ~2021-08-27 | XR_ITS ---
XR chest 2V 08/27/2021 15:54 Indication: Malignant neoplasm of the right kidney. Procedure: 2 view chest Comparison: 08/23/2021 Findings: Heart size normal. Nodular densities in the mid thorax bilaterally corresponding to nipple markers. No focal air space disease, pulmonary edema, pleural effusion or suspected pneumothorax. Impression: 1: No acute cardiopulmonary disease. Reviewed, dictated and finalized at location B. Impression: 1: No acute cardiopulmonary disease.
== END ==
PROVIDERS: PCP Family Medicine; Visit Provider Urology
DX: C64.1 Malignant neoplasm of right kidney, except renal pelvis (principal)
CPT/HCPCS: 71046

== ENCOUNTER → 2022-11-23 09:12 | Outpatient (CLI) | payer MEDICARE, SELFPAY ==
--- NOTE | ~2022-11-23 | CT_ITS ---
EXAMINATION: CT abdomen pelvis wo/w con DATE: 11/24/2022 10:30 INDICATION: Malignant neoplasm of the right kidney status post right nephrectomy TECHNIQUE: Computed tomography (CT) of the abdomen was performed without intravenous contrast. CT of the abdomen and pelvis was then performed with a total of 100 mL Omnipaque 350 intravenous contrast. The dose-length product (DLP) was 1853.30 mGy-cm. Automated exposure control and iterative reconstruc tion technique were employed. COMPARISON: 08/23/2021 FINDINGS: Minimal dependent atelectasis is present in the lung bases. The heart size is normal. The l iver, spleen, pancreas, gallbladder, and adrenal glands are normal. There are changes of right nephre ctomy. No residual mass is identified. Cysts of the left kidney measure up to 5.4 cm. No pathological ly enlarged abdominal or pelvic lymph nodes are identified. No free intraperitoneal gas or evidence o f bowel obstruction. The appendix is normal. There are small bilateral inguinal hernias containing fa t. Again noted is chronic mild fat stranding at the root of small bowel mesentery, likely mesenteric panniculitis. There is moderate lumbar spondylosis. IMPRESSION: 1. Changes right nephrectomy without evidence of residual, recurrent, or metastatic disease. Reviewed, dictated and finalized at location A. IMPRESSION: 1. Changes right nephrectomy without evidence of residual, recurrent, or metast atic disease.
--- NOTE | ~2022-11-23 | XR_ITS ---
EXAMINATION: XR chest 2V 11/24/2022 10:31 INDICATION: Malignant neoplasm of the right kidney. PROCEDURE: 2 view chest COMPARISON: Comparison to multiple prior studies sequentially, with oldest reviewed study dated 07/2019. FINDINGS: The lungs are clear. The cardiomediastinal silhouette is within normal limits. There are no pleural effusions. There is no pneumothorax suspected. IMPRESSION: 1: NO ACUTE CARDIOPULMONARY DISEASE. Reviewed, dictated and finalized at location L.
[2022-11-24 13:40] LABS: Estimated Glomerular Filt Rate 33
== END ==
PROVIDERS: PCP Urology; Visit Provider Urology
DX: C64.1 Malignant neoplasm of right kidney, except renal pelvis (principal); Z90.5 Acquired absence of kidney
CPT/HCPCS: 71046; 74178; Q9967

== ENCOUNTER 2023-12-04 08:50 | Outpatient (CLI) | payer MEDICARE, SELFPAY ==
--- NOTE | ~2023-12-04 | XR_ITS ---
EXAMINATION: XR chest 2V DATE: 12/04/2023 09:08 INDICATION: Malignant neoplasm of right kidney, except renal pelvis. TECHNIQUE: Frontal and lateral views of the chest were obtained. COMPARISON: Chest 2 views 11/23/2022, CT abdomen and pelvis 12/04/2023, chest CT 11/28/2019 FINDINGS: There is no pneumonia, pleural effusion, or pneumothorax. The heart size is normal. IMPRESSION: 1. No acute cardiopulmonary disease. Reviewed, dictated and finalized at location A.
--- NOTE | ~2023-12-04 | CT_ITS ---
EXAMINATION: CT abdomen pelvis wo/w con DATE: 12/04/2023 09:27 INDICATION: Malignant neoplasm of the right kidney TECHNIQUE: Computed tomography (CT) of the abdomen and pelvis was performed without and with 100 mL O mnipaque-350 intravenous contrast. Automated exposure control and iterative reconstruction technique were employed. The dose-length product was 2343.53 mGy-cm. COMPARISON: 11/23/2022 and 09/10/2020 FINDINGS: No change in a chronic 4 mm pleural-based nodule at the left lower lobe consistent with old granuloma tous disease. Heart size is normal. No pericardial or pleural effusion. Diffuse hepatic steatosis. Ga llbladder, spleen, pancreas and left adrenal gland are normal. Status post right nephrectomy and part ial right adrenalectomy with surgical clips at the right renal fossa. No evident residual/locally rec urrent disease. Couple low-attenuation nonenhancing left renal cysts the larger measuring 4.3 cm. [place] els including the appendix are normal. Bladder is normal prostatomegaly. Small fat-containing right i nguinal hernia. Unchanged chronic haziness to the fat at the root of the mesentery consistent with me senteric panniculitis. There are several bilateral inguinal and pelvic lymph nodes which appear enlar ged by external diameter but which are comprised almost exclusively of hilar fat with thin peripheral cortices. No pathologically enlarged abdominal or pelvic lymphadenopathy. Lumbar levoscoliosis with moderate spondylosis. IMPRESSION: 1. Status post nephrectomy and partial right adrenalectomy with no residual, locally recurrent or met astatic disease. Reviewed, dictated and finalized at location B. IMPRESSION: 1. Status post nephrectomy and partial right adrenalectomy with no residual, lo letty recurrent or metastatic disease.
[2023-12-04 09:20] LABS: Estimated Glomerular Filt Rate 40
== END 2023-12-04 08:51 | disposition home or self-care (01) ==
PROVIDERS: PCP Family Medicine; Visit Provider Urology
DX: C64.1 Malignant neoplasm of right kidney, except renal pelvis (principal); Z90.5 Acquired absence of kidney; E89.6 Postprocedural adrenocortical (-medullary) hypofunction
CPT/HCPCS: 71046; 74178; Q9967

== ENCOUNTER 2024-11-28 14:21 | Outpatient (CLI) | payer MEDICARE, SELFPAY ==
--- NOTE | ~2024-11-28 | XR_ITS ---
EXAMINATION: XR chest 2V 11/28/2024 15:08 INDICATION: Malignant neoplasm of the right kidney PROCEDURE: 2 view chest COMPARISON: Comparison to multiple prior studies sequentially, with oldest reviewed study dated 08/23. FINDINGS: The lungs are clear. The cardiomediastinal silhouette is within normal limits. There are no pleural effusions. There is no pneumothorax suspected. IMPRESSION: 1: NO ACUTE CARDIOPULMONARY DISEASE. Reviewed, dictated and finalized at location A.
--- NOTE | ~2024-11-28 | CT_ITS ---
CT of the Abdomen and Pelvis: Indication: Renal cell carcinoma Technique: 2.5 mm axial scans were obtained through the abdomen and pelvis prior to and following in travenous administration of 100 cc of Omnipaque 350. Dose reduction technique was used on this scan b y utilizing automated exposure control and iterative reconstruction technique. The dose-length produc t (DLP) was 1776.26 mGy-cm. COMPARISON: 12/04/2023 Findings: Scans through the lung bases are unremarkable. The liver, spleen, pancreas, gallbladder, and adrenal glands are within normal limits. Status post ri ght nephrectomy. Left renal cyst present. No evidence of aortic aneurysm. No lymphadenopathy likely l eft common and internal iliac chains is unchanged from prior exam.. No bowel obstruction or bowel wall thickening. There is mild haziness in the central mesentery with s hotty lymph nodes, compatible with mesenteric panniculitis.. Images through the pelvis were performed. Urinary bladder unremarkable. Prostate gland and seminal ve sicles are unremarkable. Small fat-containing right inguinal hernia present. Impression: Status post right nephrectomy. No recurrent or new mass lesion seen. Stable mild lymphadenopathy at the left common and internal iliac chains, indeterminate. Mesenteric panniculitis. Reviewed, dictated and finalized at location . Impression: Status post right nephrectomy. No recurrent or new mass lesion seen. Stable mild lymphadenopathy at the left common and internal iliac chains, indet erminate. Mesenteric panniculitis.
[2024-11-28 14:50] LABS: Estimated Glomerular Filt Rate 40
== END 2024-11-28 14:22 | disposition home or self-care (01) ==
LOC: MICIMG 14:22
PROVIDERS: PCP Family Medicine; Visit Provider Urology
DX: C64.1 Malignant neoplasm of right kidney, except renal pelvis (principal); K65.4 Sclerosing mesenteritis; Z90.5 Acquired absence of kidney
CPT/HCPCS: 71046; 74178; Q9967

== ENCOUNTER 2025-03-21 00:24 | Day surgery (SDC) | payer MEDICARE, SELFPAY ==
[2025-03-12 11:29] VITALS: BMI 38.7
--- OUTSIDE RECORDS SUMMARY | 2025-03-21 00:28 | XMS_ITS | Data Portability ---
Author Organization [place] [facility], Main Office Address [address] [place] [address] Care Team Providers Care Fisher Crab Name Role Phone LIVE CHAPARRO Primary Care Provider [phone] LIVE CHAPARRO Referring Provider Assessment Encounter Date Assessment Date Assessment LastModified by Organization Details LastModified Time 03/17/2023 03/17/2023 Impression: Patient has severe medial compartment osteoarthritis of both knees. I have discussed options with him in detail. He has basically 2 options at this time. One option is nonsurgical management with weight loss possibly trying cortisone injections use of Tylenol as needed use of a cane and adjusting his activities accordingly. Surgical treatment would be total knee replacement. He does not feel that he is ready to consider knee replacement at this time but he feels he is getting close to that point. I explained that he is at higher risk for complications because of his morbid obesity and his diabetes. He would like to try cortisone shot. The left knee is the most painful we will try that knee 1st. I have discussed risk of side effects including risk of infection with him. After ChloraPrep prep, 20 mg of Kenalog and 4 cc of 0.5% ropivacaine were injected into the left knee today. Patient would like to return in 3 weeks try cortisone shot of the right knee also. I had a long discussion with him about weight loss. We discussed avoiding foods with higher glycemic index and of course avoiding any sugary type snacks and foods. We went into a fair amount of detail. Size portion is another consideration. I emphasized that he is clearly taking in too many calories every day and reduction of his daily caloric intake will be necessary. I have given him a handout weight loss by reducing caloric intake for his review. His was present and interactive during this discussion. Weight loss may help his diabetes control and will improve his overall health and decrease his risk for severe medical complications. I will see him back in 3 weeks assess his progress. 45 minutes were spent in total care this patient more than half the time spent in [id number]-bp-tfod care. Not available 04/02/2023 11:42:06 04/10/2023 04/10/2023 HPI: Patient returns. He is here for cortisone injection the right knee. he had a left knee 3 weeks ago Which is helping a little bit. he has severe medial compartment osteoarthritis in both knees. He wished to have an injection in the right knee today. He is going to continue with working on his weight loss. Physical exam: 67-year-old male alert pleasant. He has a mild effusion in the right knee. Range of motion is from 12-120 degrees. Mild tenderness over the medial joint line. No increased swelling in either lower extremity. Hip range of motion causes no discomfort. ChloraPrep used on skin 20 mg Kenalog and 3 cc of 0.5% ropivacaine was injected into the right knee. Risk of infection discussed. Impression: 67-year-old male who has severe medial compartment osteoarthritis in both knees. Cortisone injections can be repeated every 3 months and he would like to set up an appointment in 3 months for possible reinjection in the left knee or to discuss surgery. Again he is going to continue working on his weight loss as well. 20 minutes was spent in treatment patient more than half of this in [id number] conversation Not available 04/10/2023 15:41:07 06/19/2023 06/19/2023 HPI: Patient returns. He is here for cortisone injection knee. Last shot was 3 months ago. Did get from it. He has severe medial osteoarthritis both of his knees. Shot left knee today. Physical exam: 68-year-old male alert pleasant. He has mild effusion left knee. Range of motion is from 10-125 degrees. Mild tenderness over the medial joint line to palpation. After ChloraPrep was used on skin 20 mg Kenalog and 3 cc of 0.5% ropivacaine was injected into left knee. Risk infection discussed. Impression: 68-year-old male who has severe medial compartment osteoarthritis in both knees. Shots do give him some benefit. We will see him in a week for injection in the right knee. Not available 06/19/2023 15:40:10 07/28/2023 07/28/2023 Impression: Patient has severe osteoarthritis in both knees. He is interested in considering knee replacement surgery but he has not taken steps to try to lose weight. His risk of complications especially risk of infection is higher with his morbid obesity and diabetes. I would recommend that he try to modify his diet in order to lose weight. He states that he has recently decided to get serious about weight loss. I recommended that he start by avoiding simple carbohydrates such as sodas and sweets bread pasta pizza dough potatoes and rice. By this modification his blood sugars should have improved control and he should be able to lose weight I have suggested he strive for a weight loss of 25 lb each every week I recommended he weighed daily and keep a record so he can monitor his progress. His was present for the discussion also. I explained that we would not do is knee replacement if his hemoglobin A1c was greater than 7.5. I discussed that he would need to have a BMI less than 40 to have knee replacement. I have given him a handout that correlates caloric intake and weight change. He would like to have a cortisone shot today in the right knee. Risk of side effects including affect his blood sugars may go for few days and risk of infection discussed. After Betadine and alcohol prep, 20 mg of Kenalog and 4 cc of 0.5% ropivacaine were injected without difficulty. He may continue to have a cortisone shot his office every 3 months if they are helpful and necessary. 20 minutes were spent in total care this patient with more than half the time spent specifically discussing the importance of weight loss and strategies to accomplish this. Not available 07/30/2023 13:43:09 Plan of Treatment Reminders Order Date Submit Date Provider Last Modified By Organization Details Last Modified Time Details Appointments None recorded. Lab None recorded. Referral None recorded. Procedures injection/a spiration joint/bursa (PROC) - in office procedure, administere d by provider 2023 024 [email or web address] In-Office Order, Internal Use Only DO Not Attach Compendium DO Not Attach Compendium, Do Not Delete/merge, [id number] 11:30:16 injection/a spiration joint/bursa (PROC) - in office procedure, administere d by provider 2023 024 In-Office Order, Internal Use Only DO Not Attach Compendium DO Not Attach Compendium, Do Not Delete/merge, [id number] 4 13:47:29 injection/a spiration joint/bursa (PROC) - in office procedure, administere d by provider 2022 023 [email or web address] In-Office Order, Internal Use Only DO Not Attach Compendium DO Not Attach Compendium, Do Not Delete/merge, 3 15:25:17 injection/a spiration joint/bursa (PROC) - in office procedure, administere d by provider 2022 023 [email or web address] In-Office Order, Internal Use Only DO Not Attach Compendium DO Not Attach Compendium, Do Not Delete/merge, 3 10:30:57 Surgeries None recorded. Imaging XR, knee 2022 023 [email or web address] [facility] [place], [address] [facility] [address], [place], [address], 3 11:21:20 Medication Orders Kenalog 10 mg/mL suspension for injection [address] [facility] [address] [facility] [address], [address], 4 13:28:07 ropivacaine (PF) 5 mg/mL (0.5 %) injection solution [address] [facility], [address] [facility] [address], [address], 4 13:28:07 Kenalog 10 mg/mL suspension for injection [address] [facility], [address] [facility] [address], [address], 4 18:35:44 ropivacaine (PF) 5 mg/mL (0.5 %) injection solution [address] [facility], [address], [address], 4 18:35:44 Kenalog 10 mg/mL suspension for injection 2022 023 [email or web address] Not available 3 10:08:54 ropivacaine (PF) 5 mg/mL (0.5 %) injection solution 2022 023 [email or web address] Not available 3 10:08:54 Kenalog 10 mg/mL suspension for injection [address] [facility], [address], [address], 3 10:07:11 ropivacaine (PF) 5 mg/mL (0.5 %) injection solution [address] [facility], [id number] [place] [address], [address], 3 10:07:11 Patient TargetsNo targets recorded. Patient InstructionsNo instructions recorded. Reason for Referral None Reported. Results Created Date Observation Date Name Description Value Unit Range Abnormal Flag Note LastModifiedBy Organization Detail LastModifiedTime 04/02/20 23 XR, knee No observ ation record ed. [email or web address] [facility] [place] [address], [place], [address], 04/02/2023 11:38:06 Result Notes None recorded. Problems Name Problem SNOMED Code Status Onset Date Resolution Date Notes Provider Name and Address Organization Details Recorded Time Osteoarthr itis of knee 522889557 Active Not Available [facility] 3 13:16:37 Enthesopat hy of hip region 60606566 Active Not Available [facility] 3 13:16:38 Osteoarthr itis 691695159 Active Not Available [facility] 3 13:16:38 Pain of bilateral knee joints 4782085771528 04 Active 2022 FRANKLYN Argueta null, [facility] 3 09:27:39 Osteoarthr itis of right knee joint 5890811326969 00 Active 2022 FRANKLYN Argueta null, [facility] 3 15:24:36 Osteoarthr itis of left knee joint 4992276520400 09 Active 2023 FRANKLYN Argueta, [facility] 4 13:46:23 Problem Notes None recorded. Medical Equipment None Reported. Medications Name Sig Start Date Stop Date Status Note LastModified by Organization Details LastModified Time cyclobenzap rine 10 mg tablet 06/16 completed Not Available Not Available Not Available amoxicillin 500 mg capsule 06/16 completed Not Available Not Available Not Available cefuroxime axetil 250 mg tablet 06/16 completed Not Available Not Available Not Available lisinopril 20 mg tablet TAKE 1 TABLET BY MOUTH ONCE DAILY active Not Available Not Available No t Available diphenoxyla te-atropine 2.5 mg-0.025 mg tablet 06/16 completed Not Available Not Available Not Available penicillin V potassium 500 mg tablet TAKE 1 TABLET BY MOUTH THREE TIMES DAILY FOR 10 DAYS 03/17 completed Not Available Not Available Not Available glimepiride 1 mg tablet TAKE 1 TABLET BY MOUTH ONCE DAILY active Not Available Not Available No t Available terbinafine HCl 250 mg tablet 06/16 completed Not Available Not Available Not Available Kenalog 10 mg/mL suspension for injection in office 2023 active [facility]: 0003- 0494- 20 Not Available Not Available Not Available benzonatate 100 mg capsule 06/16 completed Not Available Not Available Not Available lisinopril 10 mg tablet TAKE 1 TABLET BY MOUTH ONCE DAILY 03/17 completed Not Available Not Available Not Available zolpidem 5 mg tablet 06/16 completed Not Available Not Available Not Available zolpidem 10 mg tablet TAKE 1 TABLET BY MOUTH EVERY DAY AT BEDTIME active Not Available Not Available No t Available metformin ER 500 mg tablet,exte nded release 24 hr 06/16 completed Not Available Not Available Not Available naproxen 500 mg tablet 06/16 completed Not Available Not Available Not Available amoxicillin 875 mg-fiona m clavulanate 125 mg tablet 06/16 completed Not Available Not Available Not Available Tylenol active Not Available Not Avail able Not Available ropivacaine (PF) 5 mg/mL (0.5 %) injection solution in office 2023 active [facility] [address] -064- 01 Not Available Not Available Not Available Farxiga 10 mg tablet Take 1 tablet every day by oral route. active Not Available Not Available No t Available Fluvirin 45 mcg (15 mcg x 3)/0.5 mL intramuscul ar suspension INJECT 0.5 ML INTRAMUSC ULARLY DIRECTED. 06/16 completed Not Available Not Available Not Available Fluvirin 45 mcg (15 mcg x 3)/0.5 mL intramuscul ar suspension 06/16 completed Not Available Not Available Not Available Vitals Date Recorded Body height Provider Name an d Address Organization Details Last Updated DateTime 06/19/2023 176.53 cm Maria Eugenia Hubbard [facility] 06/19/2023 13:45:58 Date Recorded Body height Provider Name an d Address Organization Details Last Updated DateTime 07/28/2023 176.53 cm Maria Eugenia Hubbard [facility] 07/28/2023 11:27:05 Date Recorded Body height Body mass index (BMI) Body weight Provider Name and Address Organization Details Last Updated DateTime 03/17/2023 176.53 cm 40 kg/m2 865112.9 g Maria Eugenia Hubbard [facility] 03/17/2023 09:30:54 Date Recorded Body height Provider Name an d Address Organization Details Last Updated DateTime 04/10/2023 176.53 cm Maria Eugenia Hubbard [facility] 04/10/2023 15:24:05 Social History None recorded. Functional Status Question Answer Note LastModified by Organizat ion Details LastModified Time What is your level of alcohol consumption? Occasional [email or web address] Information not available 03/17/2023 Mental Status None recorded. Family History Relationship Description Onset Age of this Age Resolved Age Notes LastModified by Organization Details LastModified Time Father Family history of malignant neoplasm [email or web address] Not available 2022 09:26:34 Father Diabetes mellitus [email or web address] Not available 2022 09:26:44 Medical History Condition Response DIABETES, TYPE Y Past Encounters Encounter ID Performer Location Encounter Start Date Encounter Closed Date Diagnosis/Indication Diagnosis SNOMED-CT Code Diagnosis ICD10 Code Diagnosis IMO Codes Diagnosis Note [id number] Richard Bean MD [facility] [place] [address] [place] [address] 03/17/2023 09:03:55 04/03/2023 11:21:20 Pain of bilateral knee joints 6571059653 03728 M25.976 [id number] Richard Bean MD [facility] [place] [address] [place] [address] 04/10/2023 15:17:40 04/10/2023 15:53:18 Osteoarthritis of right knee joint 8952659134 13225 M17.11 [id number] Richard Bean MD [facility] [place] [address] [place] [address] 06/19/2023 13:41:05 06/19/2023 15:51:47 Osteoarthritis of left knee joint 1937628434 11855 M17.12 [id number] Richard Baen MD [facility] [place] [address] [place] [address] 07/28/2023 11:19:34 07/31/2023 10:16:20 Osteoarthritis of right knee joint 7611883698 78266 M17.11 Health Concerns Section Related Observation LastModified by Organization Detai ls LastModified Time None Recorded Concern Status LastModified by Organization Details LastModified Time None Recorded Advance Directives Directive None Recorded Payers Insurance Date Sequence Insurance Name Policy Number Policy Vides Covered Member ID Vides Member ID Guarantor Name 02/17/2023 1 [facility] [id number] Mitch Tavarez [id number] Mitch Tavarez 03/17/2023 2 [employer] Mitch Tavarez [id number] Mitch Tavarez 07/14/2023 1 [place] Mitch Tavarez [id number] Mitch Tavarez 08/08/2023 2 [employer] (MEDICARE SUPPLEMENT) Mitch Tavarez [id number] Mitch Tavarez Notes Date Note Type Note Provider Name and Address Organization Details Recorded Time 03/17/2023 text/html patient returns. We last saw him in 2015 for follow-up of his right hip. He had tpws-[id number]-[id number] osteoarthritis in the right hip that time. His chief complaint today is bilateral knee pain. He had x-rays of his knees back in 2014 which showed 1 mm medial joint space remaining in the right knee 1.5 mm medial joint space remaining on the left knee. He had arthroscopic surgery on both knees more than 20 years ago for meniscus trimming. His knees hurt a lot when he is on his feet for long time. They ache and this aching slows him down somewhat. It improves with rest. He has no pain when he is resting. He denies any numbness or tingling in the lower extremities. He does admit to a burning sensation in the anterolateral left thigh intermittently that improves after he sits. This is mild and just occasional. This area is in the same distribution of the lateral femoral cutaneous nerve suggesting it is probably meralgia paresthetica. Pain is deep to the kneecap in the center of the knee. It bothers him with stairs kneeling walking. He does not notice any knee pain with hip movements. It does limit how far he can walk. He does not use any gait aids. He takes Tylenol. He avoids any nonsteroidal anti-inflammatory medications. He only has 1 kidney. He underwent nephrectomy 5 years ago for kidney cancer and he has follow-ups annually and there is no recurrence of his cancer. His past medical history is significant for diabetes hypertension. He has obesity. His BMI is 40. he remains very active with his hobbies. Richard Bean MD [address] [place] [address], [place], [address], [place] [facility] 04/02/2023 11:42:24 07/28/2023 text/html Patient returns. He has been having more pain in his right knee recently. He had a cortisone shot in the right knee April 10 3 and half months ago. . It was helpful his knees been much more painful recently. His last x-rays March 17, 2023 demonstrate gyfk-fr-qsoc medial compartment osteoarthritis of both knees. He has very large superior patellar osteophytes bilaterally. Patient has diabetes. He had his hemoglobin A1c drawn yesterday and will receive the results Monday. He has not lost any weight. At last visit he is 5 ft 9 have inches in height 275 lb BMI of 40. he has not made any modifications in his diet. Richard Bean MD [address] [place] [address], [facility] [address], [place], [address], [place] [facility] 07/30/2023 13:43:22
[2025-03-21 08:01] VITALS: BP 129/75; PULSE 83; RESP 20; TEMP 36.3; O2SAT 97; BMI 37.9
[2025-03-21] MEDS: LACTATED RINGERS 1,000 ML 150 ML IV CONT (08:15)
--- NOTE | 2025-03-21 08:17 | WPDANESEPPF ---
Anes - Initial Pre Proc Eval Procedure: Operation Date: 03/21/25 09:00 Proposed Procedures p Screening Colonoscopy - Milton Wood MD Date/Time: 03/21/25 08:17 Surgeon: Milton Wood MD Pre Op Diagnosis: Personal history of colon polyps, unspecified Patient Data Age: 69 Gender: M Height: 1.78 m Weight: 119.8 kg Last Vital Signs Temp 36.3 C L 03/21/25 08:01 Pulse 83 03/21/25 08:01 Resp 20 03/21/25 08:01 BP 129/75 03/21/25 08:01 Pulse Ox 97 03/21/25 08:01 O2 Del Method Room Air 03/21/25 08:01 Allergies Allergy/AdvReac Type Severity Reaction Status Date / Time No Known Allergies Allergy Unknown Verified 03/12/25 11:35 Home Medications ?Medication ?Instructions ?Recorded ?Confirmed ?Type Lactobacills gasseri-Bifidobac 1 cap PO DAILY 12/03/19 03/12/25 History bifidum,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 ([employer]) diphenhydramine 25 2 tablet PO HS 12/03/19 03/12/25 History mg-acetaminophen 500 mg tablet (Tylenol PM Extra Strength) dapagliflozin propanediol 10 mg 10 mg PO DAILY #90 tabs 04/14/23 03/12/25 Rx tablet (Farxiga) glimepiride 1 mg tablet 1 mg PO DAILY #90 tabs 12/30/24 03/12/25 Rx lisinopril 20 mg tablet 20 mg PO DAILY #90 tabs 01/08/25 03/12/25 Rx rosuvastatin 5 mg tablet 5 mg PO DAILY #100 tabs 03/13/25 Rx zolpidem 10 mg tablet 10 mg PO QHS #30 tabs 03/18/25 Rx Laboratory Tests 03/21/25 08:11 POC Capillary Glucose 126 H mg/dl (65-105) Patient hx anesthesia problems: none Family hx anesthesia problems: none Results Review: All pre-operative results and documents have been reviewed as part of the pre-operative evaluation. [facility] Past Medical History Medical History Hyperlipidemia Morbid obesity Hepatic steatosis Hypertensive chronic kidney disease Chronic kidney disease, stage 3a Type 2 diabetes mellitus with diabetic chronic kidney disease History of renal cell cancer JEANNIE (obstructive sleep apnea) Surgical History Surgical History H/O right nephrectomy 12/11/2019 History of uvulopalatopharyngoplasty with tonsillectomy on 02/10/2006 History of nasal surgery 12/2005 H/O arthroscopic knee surgery 10/2005 Family History Family History Father Diabetes mellitus Cerebrovascular accident Mother Acute myocardial infarction Family history of congestive heart failure Sibling Diabetes mellitus Social History Social History Smoking status: Never smoker Second hand tobacco smoke exposure: No Alcohol intake: current Alcohol use details: MAY HAVE 1 OR 2 DRINKS PER WEEK Substance use: never Substance use type: does not use Do You Feel Safe in your Home?: Yes Lack of Transportation: No Lack of Food: Never True Current Housing: I Have Housing Concerned About Future Housing: No Difficulty Paying Gas/Electric Bills: No Difficulty Paying for Meds: No Currently Unemployed: No Education: Trade/Vocational Certificate Difficulty w/ Childcare or Family Care: No Living arrangements: with family Occupation/Education: retired Additional occupation/education comments: [employer] Gender identity (if verbalized by the patient): Male Sexual Orientation (if Verbalized by the Patient): Straight or Heterosexual Spiritual care concerns: No Anes - Eval Final PreProcedure Day of Procedure 03/21/25 08:17 Patient weight: obese Heart: regular rate and rhythm Lungs: decreased breath sounds Airway: Mallampati scale class II Neurological: alert and oriented Last oral intake: >/= 8 hours ASA classification: III Emergent: no Anesthetic plan: proceed Anesthesia type and monitoring: general GIVS and standard monitoring Results Review: All pre-operative results and documents have been reviewed as part of the pre-operative evaluation. Informed Consent: The patient's anesthetic plan and its attendant risks and benefits were discussed with the patient/family/POA. Questions were solicited and answers provided to the satisfaction of the patient/family/POA.
--- NOTE | 2025-03-21 08:56 | PM.IMHP ---
H&P: HPI History of Present Illness Date/Time: 03/21/25 08:56 Chief Complaint: History of colon polyps Narrative: The patient has a history of colonic polyps, the last colonoscopy was approximately 5 years ago. Review of Systems Review of Systems: All systems reviewed & are unremarkable except as noted in HPI and below PMFSH Past Medical History Medical History Hyperlipidemia Morbid obesity Hepatic steatosis Hypertensive chronic kidney disease Chronic kidney disease, stage 3a Type 2 diabetes mellitus with diabetic chronic kidney disease History of renal cell cancer JEANNIE (obstructive sleep apnea) Surgical History Surgical History H/O right nephrectomy 12/11/2019 History of uvulopalatopharyngoplasty with tonsillectomy on 02/10/2006 History of nasal surgery 12/2005 H/O arthroscopic knee surgery 10/2005 Family History Family History Father Diabetes mellitus Cerebrovascular accident Mother Acute myocardial infarction Family history of congestive heart failure Sibling Diabetes mellitus Social History Social History Smoking status: Never smoker Second hand tobacco smoke exposure: No Alcohol intake: current Alcohol use details: MAY HAVE 1 OR 2 DRINKS PER WEEK Substance use: never Substance use type: does not use Do You Feel Safe in your Home?: Yes Lack of Transportation: No Lack of Food: Never True Current Housing: I Have Housing Concerned About Future Housing: No Difficulty Paying Gas/Electric Bills: No Difficulty Paying for Meds: No Currently Unemployed: No Education: Trade/Vocational Certificate Difficulty w/ Childcare or Family Care: No Living arrangements: with family Occupation/Education: retired Additional occupation/education comments: [employer] Gender identity (if verbalized by the patient): Male Sexual Orientation (if Verbalized by the Patient): Straight or Heterosexual Spiritual care concerns: No Meds Home Medications and Allergies Home Medications ?Medication ?Instructions ?Recorded ?Confirmed ?Type Lactobacills gasseri-Bifidobac 1 cap PO DAILY 12/03/19 03/21/25 History bifidum,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 (People[employer]) diphenhydramine 25 2 tablet PO HS 12/03/19 03/21/25 History mg-acetaminophen 500 mg tablet (Tylenol PM Extra Strength) dapagliflozin propanediol 10 mg 10 mg PO DAILY #90 tabs 04/14/23 03/21/25 Rx tablet (Farxiga) glimepiride 1 mg tablet 1 mg PO DAILY #90 tabs 12/30/24 03/21/25 Rx lisinopril 20 mg tablet 20 mg PO DAILY #90 tabs 01/08/25 03/21/25 Rx rosuvastatin 5 mg tablet 5 mg PO DAILY #100 tabs 03/13/25 03/21/25 Rx zolpidem 10 mg tablet 10 mg PO QHS #30 tabs 03/18/25 03/21/25 Rx Allergies Allergy/AdvReac Type Severity Reaction Status Date / Time No Known Allergies Allergy Unknown Verified 03/12/25 11:35 Vital Signs Vital Signs - 24 hr 03/21/25 08:01 Temperature 97.4 F L Pulse Rate 83 Respiratory Rate 20 Blood Pressure 129/75 Pulse Oximetry 97 Oxygen Delivery Room Air Exam Const: General: cooperative and healthy appearing Resp: Effort & Inspection: normal respiratory effort and able to speak in complete sentences Auscultation: clear to auscultation bilaterally Cardio: Rate: regular rate Rhythm: regular rhythm GI: Inspection: normal to inspection GI Palp: No No hepatosplenomegaly present Auscultation: normal bowel sounds Rectal Exam: deferred Skin: General skin exam: normal color Psych: Appearance: grossly normal Mental Status: mental status grossly normal Assessment and Plan Assessment and plan (1) History of colon polyps: Code(s): Z86.010 - Personal history of colon polyps Status: Acute Assessment and Plan: The patient is deemed a good candidate for the procedure. Consent signed. Will proceed.
--- NOTE | 2025-03-21 09:17 | S_PTH ---
PATIENT: Mitch Tavarez LOC: [facility] U#:[id number] AGE/SX: 69/M ROOM: RE03/21/[address]: Milton Wood MD : 1955 BED: DIS: 03/21/2025 SPEC #: [id number] RECD: 03/21/25 11:26 STATUS: JANE RELj #: [id number] NICHOLAS: 03/21/25 09:[address]: Milton Wood DEPT: [facility] Surgical RECD BY: Usman Davies ENTERED: 03/21/25 11:26 SP TYPE: Surgical OTHR DR: Marlon Davis MD Tissues: A - Colon Polypectomy B - Colon Polypectomy Procedures: Hematoxylin and Eosin Stain Gross and Microscopic Level 4
[2025-03-21 09:22] VITALS: BP 111/69; PULSE 74; RESP 20; O2SAT 96
[2025-03-21 09:32] VITALS: BP 107/70; PULSE 70; RESP 20; O2SAT 96
[2025-03-21 09:42] VITALS: BP 110/69; PULSE 70; RESP 20; O2SAT 97
== END 2025-03-21 09:58 | disposition home or self-care (01) ==
PROVIDERS: PCP Family Medicine; Referring Provider Internal Medicine Gastroenterology; Visit Provider Internal Medicine Gastroenterology
PROC: 0DJD8ZZ Inspection of Lower Intestinal Tract, Via Natural or Artificial Opening Endoscopic (ICD-10-PCS; CPT 45378; principal; 2025-03-21 09:00)
DX: Z12.11 Encounter for screening for malignant neoplasm of colon (principal); D12.3 Benign neoplasm of transverse colon; K62.1 Rectal polyp; K64.8 Other hemorrhoids; K57.30 Diverticulosis of large intestine without perforation or abscess without bleeding; E78.5 Hyperlipidemia, unspecified; E11.22 Type 2 diabetes mellitus with diabetic chronic kidney disease; I12.9 Hypertensive chronic kidney disease with stage 1 through stage 4 chronic kidney disease, or unspecified chronic kidney disease; N18.31 Chronic kidney disease, stage 3a; G47.33 Obstructive sleep apnea (adult) (pediatric); E66.9 Obesity, unspecified; Z68.37 Body mass index [BMI] 37.0-37.9, adult; Z79.84 Long term (current) use of oral hypoglycemic drugs; Z98.890 Other specified postprocedural states; Z87.19 Personal history of other diseases of the digestive system; Z85.528 Personal history of other malignant neoplasm of kidney; Z82.49 Family history of ischemic heart disease and other diseases of the circulatory system
CPT/HCPCS: 45385; 82948; 88305; J2003; J2704; J7120